=== PATIENT | female | born 1965 | race Caucasian/White ===

== ENCOUNTER 2017-06-24 07:38 | Day surgery (SDC) | payer MEDICAID, SELFPAY ==
[2017-06-24] VITALS (7 sets, daily range): BP systolic 102–145; BP diastolic 67–83; PULSE 62–81; RESP 16; TEMP 36.1–36.2; O2SAT 95–98; BMI 38.3
--- NOTE | 2017-06-24 | VOCOB_PTH ---
PATIENT: KEYLA PÉREZ LOC: [facility] [place] U#:[id number] AGE/SX: 51/F ROOM: RE06/24/[address]: Dr. 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 Negative for malignancy. See comment. SJ:[email or web address] 06/27/17 COMMENT Immunohistochemistry ([id number]) for surrogate HPV marker (p16) supports the above diagnosis. MICROSCOPIC DESCRIPTION Slides are reviewed. GROSS DESCRIPTION Received in fixative is one container labeled with the patient's name and designated right vocal cord polyp. The specimen consists of a hill polyp measuring 1 x 0.6 x 0.2 cm. The entire specimen is submitted in one cassette. / MICKEY:nikolas 06/24/17 TC:5 CPT: 22774
--- NOTE | 2017-06-24 | IMM_PTH ---
PATIENT: KEYLA PÉREZ LOC: [facility] – [place] U#:[id number] AGE/SX: 51/F ROOM: RE06/24/[address]: Dr. Mandeep Hardy MD : 1965 BED: DIS: 06/24/2017 SPEC #: [id number] RECD: 06/27/17 12:53 STATUS: DENA REFortino #: [id number] VIKASH: 06/24/17 00:[address]: Mandeep Hardy DEPT: IMMUNOHISTOCHEMISTRY RECD BY: Francheska Jones ENTERED: 06/27/17 12:55 SP TYPE: IMMUNO OTHR DR: Out of [facility] Doctor Tissues: Vocal cord, NOS Procedures: p16 (initial) KI-67 (add) PHYSICIAN & INSTITUTION [place] [id number] SPECIMEN INFORMATION: Tissue Source: Right vocal fold polyp Clinical Info: Polyp of vocal cord Specimen Number: [id number] CPT code: 79207, 20368 METHODOLOGY: Deparaffinized sections of prefer/formalin-fixed tissue or PAP/DQ stained slides are incubated with monoclonal/polyclonal antibodies/oligonucleotide probes. Localization is made via biotin free immunoperoxidase method. Appropriate controls are performed and reacted as expected. Results on target cell population are indicated in the following table: RESULTS: ANTIBODY / CLONE RESULT P16 (E6H4) positive, focal and patchy Ki-67 (30-9) positive These tests were developed and their performance characteristics determined by [facility]. They may not have been cleared or approved by the U.S. Food and Drug Administration. The FDA has determined that such clearance or approval is not necessary. INTERPRETATION: Right vocal cord polyp: Benign vocal cord polyp with mild squamous dysplasia. SJ:nikolas 06/28/17
[2017-06-24] MEDS: Lidocaine 4% 50 ML Bottle (09:42)
[2017-06-24] MEDS: Oxymetazoline 0.05% 1 SPRAY SPRAY.BTL 15 SPRAY (09:42)
--- NOTE | 2017-06-24 09:57 | PCM.DC ---
- Discharge Diagnoses Reason(s) for Visit for Discharge Instructions: VOCAL POLYPS You will use the following diet at home:: No restrictions Discharge Activity: Return to Normal Activity, - - VOICE REST, LIMIT SPEAKING Call your doctor if you observe: Fever of 101 or Higher, Shortness of breath Allergies/Adverse Reactions: Allergies niacin Allergy (Verified 06/17/17 09:20) red all over body procaine [From Novocain] Allergy (Verified 06/17/17 09:20) does not work for patient Medications to take at Discharge NK [NK] 06/17/17 Primary Care Physician: Shalini Valera,Out of [Primary Care Provider] - Please Follow Up With: Mandeep Hardy MD When: 2 WEEKS
--- NOTE | 2017-06-24 10:00 | PCM.OPRPT ---
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 This caused her significant chronic sore throat complaints and the above procedure was offered in hopes of relief as well as for reduced airway compromise as these were large and significantly obstructing the laryngeal inlet. She was agreeable to proceed. The risks, alternatives, potential benefits, and complications were discussed at length and any questions answered to the patient and/or caregiver's satisfaction. Witnessed informed consent was obtained in the office, and the patient and/or caregiver was agreeable to proceed. Procedure went as follows: The patient was identified in the preoperative holding and brought to the operating room where she was placed under general anesthesia and intubated. When appropriate anesthesia was obtained, the head of bed was rotated and the patient prepped and draped in usual sterile fashion. A gauze was placed to protect the upper gums and a Dedo laryngoscope was then introduced and the patient suspended from the Garcia stand. Using the operative microscope the laryngeal inlet was then examined was noted to have a large polyps bilaterally. The larynx was then topicalized with pledgets soaked in a 50-50 mixture of oxymetazoline and 4% topical lidocaine to allow for vasoconstriction. The right polyp was then grasped and trisected did at its base with an up-cutting forceps living a mucosal flap for closure of the wound site after suctioning the gelatinous material from within the polyp. This resulted in excellent alleviation of the mass-effect and mosque of the normal contours of the vocal fold. No bleeding was encountered and the patient was taken out of suspension and the laryngoscope removed. She was then returned to anesthesia where she was revived and extubated without competition having tolerated the procedure well. Type of Anesthesia:: General Anesthesiologist: Mandeep Summers Specimen's removed: RIGHT VOCAL POLYP Drains: NONE Estimated Blood Loss (mL): NONE Fluids Replaced: 800 ML Grafts/Implants Used: NONE - Complications NONE - Admit VTE Documentation VTE Present on Admission: No VTE Mechan Device Prophylaxis: SCD's
== END 2017-06-24 11:30 | disposition home or self-care (01) ==
LOC: SDC 07:39 → AC 07:41
PROVIDERS: Visit Provider Otolaryngology
PROC: 0CJS8ZZ Inspection of Larynx, Via Natural or Artificial Opening Endoscopic (ICD-10-PCS; CPT 31575; principal; 2017-06-24 09:05)
DX: D14.1 Benign neoplasm of larynx (principal); J38.3 Other diseases of vocal cords; H91.23 Sudden idiopathic hearing loss, bilateral; H93.13 Tinnitus, bilateral; R43.0 Anosmia; Z87.891 Personal history of nicotine dependence
CPT/HCPCS: 31541; 88305; 88341; 88342; J7120; J2405

== ENCOUNTER 2017-07-15 07:18 | Day surgery (SDC) | payer MEDICAID, SELFPAY ==
[2017-07-15 07:43] VITALS: BP 145/88; PULSE 80; RESP 16; TEMP 36.4; O2SAT 98; BMI 37.8
--- NOTE | 2017-07-15 08:50 | VOCOB_PTH ---
PATIENT: KEYLA PÉREZ LOC: [facility] U#:[id number] AGE/SX: 51/F ROOM: RE07/15/[address]: Dr. Mandeep Hardy MD : 1965 BED: DIS: 07/15/2017 SPEC #: [id number] RECD: 07/15/17 12:17 STATUS: DENA KOMAL #: [id number] VIKASH: 07/15/17 08:[address]: Mandeep Hardy DEPT: SURGICAL PATHOLOGY RECD BY: Gonzales Segura ENTERED: 07/15/17 12:18 SP TYPE: VOCAL CORD OTHR DR: Out of [facility] Doctor Tissues: Vocal cord, NOS Procedures: Surgery Specimen Level IV HEADER OPERATION: Direct microlaryngoscopy, excision of vocal polyp PRE-OP DIAGNOSIS: Polyp of left vocal cord, dysphonia TISSUE SUBMITTED: Left vocal cord polyp MICROSCOPIC DIAGNOSIS Left vocal cord polyp, excision: Fragments of benign vocal cord polyp. See comment. SJ:nikolas 07/18/17 COMMENT Significant dysplasia is not seen. Please make reference to previous specimen ([id number]) right vocal cord polyp, biopsy with diagnosis of benign vocal cord with mild squamous dysplasia and hyperkeratosis. MICROSCOPIC DESCRIPTION Slides are reviewed. GROSS DESCRIPTION Received in fixative is one container labeled with the patient's name and designated left vocal cord polyp. The specimen consists of three variable size fragments of hill-pink soft tissue that in aggregate measure 1.5 x 0.5 x 0.2 cm. The specimen is totally submitted in one cassette. / MICKEY:nikolas 07/15/17 TC:5 CPT: 62149
[2017-07-15] MEDS: Oxymetazoline 0.05% 1 SPRAY SPRAY.BTL 15 SPRAY (10:01)
[2017-07-15] MEDS: Lidocaine 4% 50 ML Bottle (10:01)
--- NOTE | 2017-07-15 10:24 | OP.PCM_ITS ---
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 This had previously been resected on the right side and showed excellent healing and she returns today for second stage of her procedure for removal of the left polyp. She showed excellent response and healing after excision of the right side with return to normal vocal fold contour and appearance and good result was anticipated for the second stage of the procedure on the left. The risks, alternatives, potential benefits, and complications were discussed at length and any questions answered to the patient and/or caregiver's satisfaction. Witnessed informed consent was obtained in the office, and the patient and/or caregiver was agreeable to proceed. Procedure went as follows: The patient was identified in the preoperative holding and placed under general anesthesia. Appropriate anesthesia was obtained, the head was prepped and draped in usual sterile fashion. A gauze was placed to protect the upper gums and a Dedo laryngoscope introduced and direct laryngoscopy carried out. The patient was then placed in suspension from the [employer] industrial locomotive operator the operative microscope brought into the field and the vocal folds visualized. There is noted to be excellent healing and normal appearance of the right vocal fold consistent with previous resection of a polyp. There is a large hemorrhagic polyp involving the entire length of the left vocal fold. This was then topicalized with pledgets soaked with oxymetazoline and 4% topical lidocaine. Using a microlaryngeal forceps this was then grasped and transected at its base with an up-cutting scissor. The polyp specimen was then sent for pathologic evaluation. The posterior mucosal flap was then trimmed after suctioning clear the gelatinous matrix of the polyp and redraped over the leading edge of the vocal process completing the procedure. Topical pledgets for hemostasis was then applied and upon removal the patient taken out of suspension and the Dedo laryngoscope removed. The patient was then returned to anesthesia having tolerated the procedure well without complication. Type of Anesthesia:: General Anesthesiologist: Manedep Summers Specimen's removed: left vocal fold polyp Drains: none Estimated Blood Loss (mL): 0 mL Fluids Replaced: 800 mL Grafts/Implants Used: none - Complications none - Admit VTE Documentation VTE Present on Admission: No VTE Mechan Device Prophylaxis: SCD's VTE Pharm Prophylaxis ordered?: No
--- NOTE | 2017-07-15 10:24 | PCM.DC ---
You will use the following diet at home:: No restrictions Discharge Activity: Return to Normal Activity Call your doctor if your incision/area has: Sudden Increased Bleeding Call your doctor if you observe: Fever of 101 or Higher, Uncontrolled pain Allergies/Adverse Reactions: Allergies niacin Allergy (Verified 07/07/17 09:07) red all over body procaine [From Novocain] Allergy (Verified 07/07/17 09:07) does not work for patient Medications to take at Discharge NK [NK] 07/07/17 Primary Care Physician: Shalini Valera,Out of [Primary Care Provider] - Please Follow Up With: Mandeep Hardy MD When: 2 weeks
[2017-07-15 10:32] VITALS: BP 128/81; BP 145/88; PULSE 69; RESP 16; TEMP 36; O2SAT 92
[2017-07-15 10:46] VITALS: BP 123/71; BP 145/88; PULSE 75; RESP 16; O2SAT 100
[2017-07-15 10:48] VITALS: BP 118/81; BP 145/88; PULSE 69; RESP 18; TEMP 36.6; O2SAT 99
[2017-07-15 11:00] VITALS: BP 145/88
== END 2017-07-15 11:11 | disposition home or self-care (01) ==
LOC: SDC 07:20 → AC 07:23
PROVIDERS: Visit Provider Otolaryngology
PROC: 0CJS8ZZ Inspection of Larynx, Via Natural or Artificial Opening Endoscopic (ICD-10-PCS; CPT 31575; principal; 2017-07-15 08:45)
DX: D14.1 Benign neoplasm of larynx (principal); R49.0 Dysphonia; Z87.891 Personal history of nicotine dependence
CPT/HCPCS: 00320; 31545; 88305; J7120